=== PATIENT | male | born 1960 | race Caucasian/White ===

== ENCOUNTER 2021-11-22 08:21 | Outpatient (REF) | payer BC, SELFPAY ==
[2021-11-22 09:02] LABS: COVID-19 Test Negative (Negative)
== END 2021-11-22 08:22 | disposition home or self-care (01) ==
LOC: HO.LAB 08:21
PROVIDERS: Visit Provider Internal Medicine
DX: Z20.822 Contact with and (suspected) exposure to COVID-19 (principal)
CPT/HCPCS: 87635; C9803

== ENCOUNTER 2022-04-27 06:16 | Outpatient (REF) | payer BC, SELFPAY ==
[2022-04-27 11:18] LABS: MANUAL DIFF FLAG NO
[2022-04-27 11:25] LABS: Basophils Percent Auto 0.4 % (0-2); Eosinophils Absolute Auto 0.2 X10*3/uL (0.0-0.4); Eosinophils Percent Auto 4.2 % (0-4); Hematocrit 42.2 % (42.0-52.0); Hemoglobin 14.1 g/dl (14.0-18.0); Imm Gran Abs Auto 0.01 X10*3/uL (0.00-0.03); Imm Gran Pct Auto 0.2 % (0.0-0.4); Lymphocytes Absolute Auto 1.3 X10*3/uL (1.2-4.9); Lymphocytes Percent Auto 27.5 % (20-40); Mean Corpuscular HGB Conc 33.4 g/dl (31.0-36.0); Mean Corpuscular Hemoglobin 30.7 pg (27.0-33.0); Mean Corpuscular Volume 91.9 fL (80.0-98.0); Mean Platelet Volume 10.9 fL (9.4-12.4); Monocytes Absolute Auto 0.5 X10*3/uL (0.1-1.2); Monocytes Percent Auto 9.4 % (2-11); Neutrophils Absolute Auto 2.8 x10*3/uL (2.0-8.3); Neutrophils Percent Auto 58.3 % (45-73); Platelet Count 228 X10*3/uL (160-400); Red Blood Count 4.59 X10*6/uL (4.60-5.80); Red Cell Distribution Width 12.7 % (11.0-16.0); White Blood Count 4.8 X10*3/uL (4.8-10.8)
[2022-04-27 12:04] LABS: Alanine Aminotransferase 21 U/L (0-40); Alkaline Phosphatase 57 U/L (39-117); Anion Gap 12 (12-20); Aspartate Amino Transferase 15 U/L (5-37); Bilirubin Total 0.7 mg/dL (0.0-1.0); Blood Urea Nitrogen 19 mg/dL (9-16); Calcium 9.2 mg/dL (8.4-10.2); Carbon Dioxide 24 mmol/L (22-29); Chloride 107 mmol/L (96-108); Cholesterol 177 mg/dL; Estimated Glomerular Filt Rate > 60; Glucose Fasting 91 mg/dL (60-99); HDL Cholesterol 55 mg/dL; LDL Cholesterol Calculated 109 mg/dl; Potassium 4.3 mmol/L (3.3-5.1); Sodium 139 mmol/L (135-145); Total Protein 6.6 g/dL (6.5-8.0); Triglycerides 66 mg/dL
[2022-04-27 12:10] LABS: Prostate Specific Antigen 2.58 ng/mL (<0.05-4.0)
== END 2022-04-27 06:17 | disposition home or self-care (01) ==
LOC: HO.HMGCLDS 06:16
PROVIDERS: Visit Provider Internal Medicine
DX: Z00.00 Encounter for general adult medical examination without abnormal findings (principal); Z12.5 Encounter for screening for malignant neoplasm of prostate
CPT/HCPCS: 36415; 80053; 80061; 84153; 85025

== ENCOUNTER 2022-10-19 06:18 | Day surgery (SDC) | payer BC, SELFPAY ==
--- NOTE | 2022-10-18 14:00 | P.CONAN_ITS ---
Documented by User: Erica Mcmillan NP 10/18/22 14:01 HPI - Anesthesia Eval Consult details Narrative: 62yo M for Colonoscopy FOR[facility], LAT[facility] Past Medical History Medical History (Updated 10/18/22 @ 10:58 by Francoise Thomas RN) HTN (hypertension) Surgical History Surgical History (Updated 10/18/22 @ 11:00 by Francoise Thomas RN) Hx of colonoscopy Hx of hand surgery Social History Social History Patient Tobacco Use Status: Never used Tobacco Use of substances other than those prescribed or required for medical reasons: No Are you DNR?: No Advance Directives: No Advance Directives Information Provided: Yes Meds Allergies Allergy/AdvReac Type Severity Reaction Status Date / Time No Known Allergies Allergy Verified 10/19/22 06:29 Home Medications Medication Instructions Recorded Confirmed Last Taken Type lisinopril 10 mg tablet 1 tab PO DAILY 10/18/22 10/19/22 10/19/22 05:30 History multivitamin 1 tab PO DAILY 10/18/22 10/19/22 Unknown History Exam Exam Date and Time: October 18, 2022 1400 Pertinent Lab Results Pertinent Lab Results: Laboratory Tests 04/27/22 04/27/22 06:33 06:33 WBC 4.8 Hgb 14.1 Hct 42.2 Plt Count 228 Sodium 139 Potassium 4.3 Chloride 107 Carbon Dioxide 24 BUN 19 H Creatinine 0.80 Assessment and Plan Assessment Anesthesia Assessment: Chart Reviewed Documented by User: Maisha Connolly MD 10/19/22 07:21 [facility] LAT[facility] Past Medical History Medical History (Updated 10/18/22 @ 10:58 by Francoise Thomas RN) HTN (hypertension) Family History Family history of problems with anesthesia: No Surgical History Surgical History (Updated 10/18/22 @ 11:00 by Francoise Thomas RN) Hx of colonoscopy Hx of hand surgery History of Problems with Anesthesia: No Social History Social History Patient Tobacco Use Status: Never used Tobacco Use of substances other than those prescribed or required for medical reasons: No Are you DNR?: No Advance Directives: No Advance Directives Information Provided: Yes Meds Allergies Allergy/AdvReac Type Severity Reaction Status Date / Time No Known Allergies Allergy Verified 10/19/22 06:29 Home Medications Medication Instructions Recorded Confirmed Last Taken Type lisinopril 10 mg tablet 1 tab PO DAILY 10/18/22 10/19/22 10/19/22 05:30 History multivitamin 1 tab PO DAILY 10/18/22 10/19/22 Unknown History Exam Airway Mallampati Class: II TM Dist: >3cm Neck ROM: Full Loose/Missing/Broken Teeth: No Heart: rr Lungs: cta Assessment and Plan Final Anesthetic Review Family History of Problems with Anesthesia: No History of Problems with Anesthesia: No NPO: Yes ASA Class: II Final Preanesthetic Review: No Changes in Pt Med Stat Patient Risk: Low Procedure Risk: Low Anesthetic Plan Anesthetic Plan: MAC: Disposition: Standard PACU
[2022-10-19 06:30] VITALS: BMI 23.2
[2022-10-19 06:35] VITALS: BP 159/100; PULSE 71; RESP 16; TEMP 36.2; O2SAT 98
[2022-10-19] MEDS: Lactated Ringers 1,000 ML 100 ML IVCONT (06:49)
[2022-10-19 08:28] VITALS: BP 145/86; PULSE 78; RESP 12; TEMP 36.1; O2SAT 98
--- NOTE | 2022-10-19 08:29 | PM.OP ---
Brief Operative Note Date of Service: 10/19/22 Pre-op diagnosis: Screening Post-op diagnosis: other (Rectal polyp) Procedure: Colonoscopy to the cecum and TI with bx/removal of polyp Surgeon: Alex Prado Anesthesia: MAC Was an Pressing Machine Operator used for this Procedure?: No Estimated blood loss (mL): 2.0 Pathology: other (A. Rectal polyp) Condition: stable Disposition: PACU
[2022-10-19 08:43] VITALS: BP 154/83; PULSE 64; RESP 18; TEMP 36.1; O2SAT 100
--- NOTE | 2022-10-19 09:04 | OP_ITS ---
SURGEON: Alex Prado MD INDICATIONS: The patient presents for evaluation of colorectal cancer screening. Full consent has been obtained from him for this, including risks of bleeding and perforation. PREOPERATIVE DIAGNOSIS: Colorectal cancer screening. POSTOPERATIVE DIAGNOSIS: PROCEDURE PERFORMED: Colonoscopy to the cecum and terminal ileum with biopsy and removal of polyp. ESTIMATED BLOOD LOSS: COMPLICATIONS: ANESTHESIA: monitored anesthesia care. ASSISTANTS: SPECIMENS: POSTOPERATIVE DIAGNOSES: Colorectal cancer screening, small rectal polyp, diverticulosis, and internal hemorrhoids. DESCRIPTION OF PROCEDURE: The patient was placed in the left lateral decubitus position. The digital rectal exam revealed no abnormalities. The Olympus video pediatric colonoscope was entered into the rectum and advanced easily to the cecum. Once in the cecum I did identify normal-appearing cecal pouch with appendiceal orifice and a normal-appearing ileocecal valve. The terminal ileum was cannulated and appeared normal. The scope was withdrawn back in the colon. The entire cecum and ileocecal valve appeared normal. The scope was slowly withdrawn assessing all mucosal surfaces carefully. Preparation was excellent. There was a mild amount of sigmoid diverticulosis. I did not visualize any sign of colitis nor angiodysplasia. In the distal rectum was a flat approximately 4 mm polyp, which was biopsied and completely removed with a cold biopsy forceps. The scope was retroflexed visualizing some internal hemorrhoids. The remainder of the rectum appeared normal. The scope was straightened and withdrawn from the patient. He tolerated the procedure well and was returned to the recovery area in stable condition. IMPRESSION: 1. Small rectal polyp. 2. Diverticulosis. 3. Internal hemorrhoids. PLAN: The results of the pathology will be checked. If this is a tubular adenoma, I would recommend a followup colonoscopy in 5 years. If it is only hyperplastic, I would recommend a followup colonoscopy in 10 years. He would otherwise see me on a p.r.n. basis. MD TOYN Keita/SIMBA / [id number] MTDOsman
== END 2022-10-19 09:21 | disposition home or self-care (01) ==
PROVIDERS: PCP Internal Medicine; Visit Provider Internal Medicine
PROC: 0DJD8ZZ Inspection of Lower Intestinal Tract, Via Natural or Artificial Opening Endoscopic (ICD-10-PCS; CPT 45378; principal; 2022-10-19 07:30)
DX: Z12.11 Encounter for screening for malignant neoplasm of colon (principal); D12.8 Benign neoplasm of rectum; K57.30 Diverticulosis of large intestine without perforation or abscess without bleeding; K64.8 Other hemorrhoids; I10 Essential (primary) hypertension; Z79.899 Other long term (current) drug therapy
CPT/HCPCS: 45380; 88305

== ENCOUNTER 2024-01-08 06:04 | Outpatient (REF) | payer BC, SELFPAY ==
[2024-01-08 11:18] LABS: MANUAL DIFF FLAG NO
[2024-01-08 11:24] LABS: Basophils Percent Auto 0.7 % (0-2); Eosinophils Absolute Auto 0.2 X10*3/uL (0.0-0.4); Hematocrit 42.9 % (42.0-52.0); Hemoglobin 14.6 g/dl (14.0-18.0); Imm Gran Abs Auto 0.02 X10*3/uL (0.00-0.03); Imm Gran Pct Auto 0.5 % (0.0-0.4); Lymphocytes Absolute Auto 1.3 X10*3/uL (1.2-4.9); Lymphocytes Percent Auto 29.9 % (20-40); Mean Corpuscular Hemoglobin 30.3 pg (27.0-33.0); Mean Platelet Volume 10.7 fL (9.4-12.4); Monocytes Absolute Auto 0.4 X10*3/uL (0.1-1.2); Neutrophils Absolute Auto 2.4 x10*3/uL (2.0-8.3); Neutrophils Percent Auto 54.9 % (45-73); Platelet Count 268 X10*3/uL (160-400); Red Blood Count 4.82 X10*6/uL (4.60-5.80); Red Cell Distribution Width 12.2 % (11.0-16.0); White Blood Count 4.4 X10*3/uL (4.8-10.8)
[2024-01-08 11:43] LABS: Alanine Aminotransferase 15 U/L (0-40); Alkaline Phosphatase 52 U/L (39-117); Anion Gap 12 (12-20); Aspartate Amino Transferase 15 U/L (5-37); Bilirubin Total 0.5 mg/dL (0.0-1.0); Blood Urea Nitrogen 15 mg/dL (9-16); C Reactive Protein 1.91 mg/dL (< or = 0.50); Calcium 9.9 mg/dL (8.4-10.2); Carbon Dioxide 25 mmol/L (22-29); Chloride 105 mmol/L (96-108); Cholesterol 134 mg/dL (<200); Estimated Glomerular Filt Rate > 60; Glucose Fasting 96 mg/dL (60-99); HDL Cholesterol 55 mg/dL (>40); LDL Cholesterol Calculated 67 mg/dL (<100); Potassium 3.9 mmol/L (3.3-5.1); Sodium 138 mmol/L (135-145); Triglycerides 61 mg/dL (<150)
[2024-01-08 11:56] LABS: Prostate Specific Antigen 3.44 ng/mL (<0.05-4.0)
== END 2024-01-08 06:05 | disposition home or self-care (01) ==
LOC: HO.HMGCLDS 06:04
PROVIDERS: PCP Internal Medicine; Visit Provider Internal Medicine
DX: Z12.5 Encounter for screening for malignant neoplasm of prostate (principal); I10 Essential (primary) hypertension; N40.0 Benign prostatic hyperplasia without lower urinary tract symptoms
CPT/HCPCS: 36415; 80053; 80061; 84153; 85025; 86140

== ENCOUNTER 2024-02-17 14:06 | Outpatient (REF) | payer BC, SELFPAY ==
[2024-02-17 14:52] LABS: Influenza A PCR NEGATIVE (Negative); Influenza B PCR NEGATIVE (Negative); Resp Syncy Virus RNA Qual PCR NEGATIVE (Negative); SARS COV2 PCR INHOUSE NEGATIVE (Negative)
== END 2024-02-17 14:07 | disposition home or self-care (01) ==
LOC: HO.LNP 14:06
PROVIDERS: Visit Provider Internal Medicine
DX: R05.9 Cough, unspecified (principal); R51.9 Headache, unspecified
CPT/HCPCS: 0241U

== ENCOUNTER 2025-05-31 15:07 | Outpatient (AMB) | payer MEDICARE, SELFPAY ==
[2025-05-31 15:36] VITALS: BP 138/84; PULSE 88; TEMP 36.2; O2SAT 97; BMI 25.2
--- NOTE | 2025-05-31 15:36 | MHC.PC.OV ---
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: No Accompanied by: Self / Same As Patient Allergies No Known Allergies Allergy (Verified 05/31/25 15:40) Tobacco use date assessed: 05/31/25 Fall risk assessment: No Falls in past year Last assessed Fall Risk: 05/31/25 Dental Screening Dental Screen Date: 05/31/25 Did you have a dental visit in the last 12 months?: No Did you have a dental problem in the last 6 months where you did not have access to dental care?: No PFSH Medical History HTN (hypertension) Surgical History Hx of hand surgery Hx of colonoscopy (~10/19/22) Family History (Updated 05/31/25 @ 15:43 by Zari Whitaker MA) Mother No problems noted. Father No problems noted. Social History Housing: House Patient Tobacco Use Status: Never used Tobacco e-Cigarette/Vaping Use: Never Used service: No Current occupational status: employed Cognitive needs: No Hearing needs: No Vision needs: Yes (rx glasses) Questionnaire PHQ-9 Over the last 2 weeks, how often have you been bothered by any of the following problems? 1. Little interest or pleasure in doing things: not at all 2. Feeling down, depressed, or hopeless: not at all 3. Trouble falling or staying asleep, or sleeping too much: not at all 4. Feeling tired or having little energy: not at all 5. Poor appetite or overeating: not at all 6. Feeling bad about yourself - or that you are a failure or have let yourself or your family down: not at all 7. Trouble concentrating on things, such as reading the newspaper or watching television: not at all 8. Moving or speaking so slowly that other people could have noticed. Or the opposite - being so fidgety or restless that you have been moving around a lot more than usual: not at all 9. Thoughts that you would be better off or of hurting yourself in some way: not at all Total score: 0 Source: Developed by Drs. Alex Jack, Addis Perez, Fredis Costa and colleagues, with an educational monse from [employer]. Thrive Questionnaire Date Thrive assessed: 05/31/25 I am a: Patient Within the past 12 months, did the food you bought not last and you didn't have the money to get more?: Never true Within the past 12 months, did you worry whether your food would run out before you got money to buy more?: Never true Do you have trouble paying for medicines?: No Do you have trouble getting transportation to medical appointments?: No Do you have trouble paying your heating and electricity bill?: No Do you have trouble taking care of your child, family member or friend?: No Do you have trouble with day-to-day activities such as bathing, preparing meals, shopping, managing finances, etc.?: No Are you currently unemployed and looking for a job?: No Are you interested in more education?: No THRIVE Score: 0 AUDIT C Alcohol Use Questionnaire (AUDIT-C) 1. How often do you have a drink containing alcohol?: Monthly or less 2. How many drinks containing alcohol do you have on a typical day when you are drinking?: 1 or 2 3. How often do you have six or more drinks on one occasion?: Less than monthly Total Score: 2 DIANNA-7 AMB Questionnaire DIANNA-7 Date DIANNA - 7 assessed: 05/31/25 Feeling nervous, anxious, or on edge: 0 = Not at all Not being able to stop or control worryin = Not at all Worrying too much about different things: 0 = Not at all Trouble relaxin = Not at all Being so restless that it is hard to sit still: 0 = Not at all Becoming easily annoyed or irritable: 0 = Not at all Feeling afraid as if something awful might happen: 0 = Not at all Total DIANNA-7 score (0-4 normal; 5-9 mild; 10-14 moderate; 15-21 severe): 0 Source: Developed by Drs. Alex Jack, Addis Perez, Fredis Costa and colleagues, with an educational monse from [employer]. Physical exam (Primary Care) Vital Signs: Last Vital Signs Temp 97.1 F 05/31/25 15:36 Pulse 88 05/31/25 15:36 BP 138/84 05/31/25 15:36 Pulse Ox 97 05/31/25 15:36 Oxygen Delivery Method Room Air 05/31/25 15:36 BMI result Body Mass Index 25.2 Tobacco/Smoking Status: Tobacco use Status Tobacco use date assessed 05/31/25 05/31/25 15:44 Patient Tobacco Use Status Never used Tobacco 05/31/25 15:44 e-Cigarette/Vaping Use Never Used 05/31/25 15:44 PHQ-9: PHQ-9 Score PHQ-9: Total score 0 05/31/25 15:44 Thrive Assessment: Date of Thrive Assessment Date Thrive assessed 05/31/25 05/31/25 15:44 Coding Level of Care Code New Pt Prev Care >65yr (76684) Diagnoses Annual physical exam Z00.00 Assessment & Plan Assessment & Plan (1) Annual physical exam: Code(s): Z00.00 - Encounter for general adult medical examination without abnormal findings Plan: History of Present Illness - The patient is a 64-year-old male presenting for a physical examination with a primary concern of tinnitus. - Tinnitus has been present for over a year, described as a significant ringing that sometimes leads to headaches on the left side of the neck. - The ringing is more noticeable in quiet environments and does not interfere with sleep. - The patient has tried allergy medications without relief and has consulted an ENT, Dr. Dominguez, who noted borderline hearing loss and suggested hearing aids might help. - The patient reports nasal congestion upon waking, which resolves after clearing the nose, with occasional sneezing but no itchy eyes. 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 Review of Systems - Neurological: Reports significant tinnitus, sometimes leading to headaches on the left side of the neck. Denies interference with sleep. - Respiratory: Reports nasal congestion upon waking, resolves after clearing the nose. Occasional sneezing, denies itchy eyes. - Auditory: Reports hearing loss, more noticeable in quiet environments. Denies issues with phone conversations. Physical Exam General: Cooperative and healthy appearing Nutritional Appearance: Well nourished Orientation/consciousness: Patient oriented x3 Limitations: No limitations Head: Normal to inspection General: Appearance normal, both eyes and all related structures Neck: Normal visual inspection Chest: Normal palpation of entire chest wall Respiratory: N ormal respiratory effort Neurology: Patient oriented x3, reports significant tinnitus and occasional headaches on the left side of the neck. Results Plan 1. Tinnitus - Referral to ENT in [place] for further evaluation to rule out any underlying causes. - Discussion of masking noises such as rain or ocean sounds to alleviate symptoms, especially in quiet environments. 2. Hearing Loss - Previous evaluation by ENT suggested borderline need for hearing aids. - Consideration of hearing aids to potentially improve hearing and alleviate tinnitus. 3. Preventative Care: Fasting Blood Work - Fasting blood work recommended to update health status. Discussion Notes I discussed with the patient the likelihood of tinnitus being a chronic condition with no definitive cure, emphasizing the importance of ruling out any underlying causes through an ENT evaluation. We talked about the potential benefits of masking noises to manage symptoms. I also recommended fasting blood work to assess overall health status and suggested considering hearing aids as a possible intervention for hearing loss. Patient Instructions - Schedule an appointment with the ENT in [place] for further evaluation. - Consider using masking noises like rain or ocean sounds to help with tinnitus, especially in quiet settings. - Complete fasting blood work as recommended. Medications: Discontinued lisinopril take 1 tab and half by mouth a day Discontinued Reason: Patient no longer taking 10 mg PO DAILY 135 tabs 3RF
== END 2025-05-31 16:13 | disposition home or self-care (01) ==
PROVIDERS: PCP Internal Medicine; Visit Provider Internal Medicine
DX: Z00.00 Encounter for general adult medical examination without abnormal findings (principal)

== ENCOUNTER → 2025-05-31 15:07 | Outpatient (BNVA) | payer MEDICARE, SELFPAY | PROVIDERS: PCP Internal Medicine; Visit Provider Internal Medicine | DX: Z00.00 Encounter for general adult medical examination without abnormal findings (principal); H93.19 Tinnitus, unspecified ear; H91.90 Unspecified hearing loss, unspecified ear | CPT/HCPCS: 96127; 99387 ==

== ENCOUNTER 2025-06-08 06:59 | Outpatient (REF) | payer MEDICARE, SELFPAY ==
[2025-06-08 10:19] LABS: Hematocrit 39.7 % (42.0-52.0); Hemoglobin 13.5 g/dl (14.0-18.0); Mean Corpuscular HGB Conc 34.0 g/dl (31.0-36.0); Mean Corpuscular Hemoglobin 30.7 pg (27.0-33.0); Mean Corpuscular Volume 90.2 fL (80.0-98.0); NRBC Abs Auto 0.000 X10*3/uL (0.0-0.012); NRBC Pct Auto 0.0 /100WBC (0.0-0.2); Platelet Count 199 X10*3/uL (160-400); Red Blood Count 4.40 X10*6/uL (4.60-5.80); White Blood Count 3.8 X10*3/uL (4.8-10.8)
[2025-06-08 10:32] LABS: Appearance Urine Clear; Glucose Urine UA Negative (Negative); PH 6.5 (5.0-9.0); Specific Gravity - Urine 1.015 (1.005-1.025)
[2025-06-08 10:51] LABS: Alanine Aminotransferase 25 U/L (0-40); Albumin Level 4.2 g/dL (3.5-5.0); Alkaline Phosphatase 51 U/L (39-117); Anion Gap 12 (12-20); Aspartate Amino Transferase 32 U/L (5-37); Blood Urea Nitrogen 13 mg/dL (9-16); Calcium 8.7 mg/dL (8.4-10.2); Carbon Dioxide 26 mmol/L (22-29); Chloride 106 mmol/L (96-108); Cholesterol 122 mg/dL (<200); Estimated Glomerular Filt Rate > 60; HDL Cholesterol 54 mg/dL (>40); Potassium 3.9 mmol/L (3.3-5.1); Sodium 140 mmol/L (135-145); Total Protein 6.8 g/dL (6.5-8.0); Triglycerides 56 mg/dL (<150)
[2025-06-08 11:18] LABS: Thyroid Stimulating Hormone 1.71 uIU/mL (0.32-4.0)
== END 2025-06-08 07:00 | disposition home or self-care (01) ==
LOC: HO.HMGCLDS 06:59
PROVIDERS: PCP Internal Medicine; Visit Provider Internal Medicine
DX: H93.19 Tinnitus, unspecified ear (principal)
CPT/HCPCS: 36415; 80048; 80061; 80076; 81003; 84443; 85027

== ENCOUNTER 2025-08-16 16:05 | Outpatient (AMB) | payer MEDICARE, SELFPAY ==
--- NOTE | 2025-08-16 16:12 | MHC.PC.OV ---
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 Prefers [place] Hypertension-has been taking losartan 75 mg daily. Not checking blood pressures at home. He does report increased stress as he is currently selling his home, retiring within the next week. Initial blood pressure 150/90, recheck 160/94 Concerns: None Health maintenance: Last colonoscopy 2021 with 5 year follow-up advised. Dr. Prado ROS: General: No fevers, malaise, unintentional weight loss HEENT: No blurred vision, diplopia. No sore throat, nasal congestion, rhinorrhea, sinus pain, ear pain Cardiovascular: No chest pain, palpitations, or leg edema Respiratory: No shortness of breath, wheezing, cough GI: No abdominal pain, nausea, vomiting, diarrhea, constipation, melena, hematochezia : No dysuria, hematuria, increased urinary frequency, decreased urinary output MSK: No myalgia, back pain Neuro: No headaches, weakness, paresthesias Skin: No rashes or lesions EXAM: Constitutional - Awake and Alert, No apparent distress Eyes - PERRL Cardiovascular - S1S2, RRR, No edema Respiratory - Normal lung expansion, Normal respiratory effort, No respiratory distress, CTA bilaterally Extremities - no calf tenderness bilaterally, no swelling Skin - Warm/Dry Neurological - Alert & oriented x3 Psychological - Appropriate [facility] Medical History (Updated 08/16/25 @ 16:47 by JERALD Wasserman) Tinnitus HTN (hypertension) Surgical History Hx of hand surgery Hx of colonoscopy (~10/19/22) Family History (Updated 05/31/25 @ 15:43 by Zari Whitaker MA) Mother No problems noted. Father No problems noted. Social History Housing: House Patient Tobacco Use Status: Never used Tobacco e-Cigarette/Vaping Use: Never Used service: No Current occupational status: employed Cognitive needs: No Hearing needs: No Vision needs: Yes (rx glasses) Questionnaire Thrive Questionnaire Date Thrive assessed: 05/31/25 DIANNA-7 AMB Questionnaire DIANNA-7 Date DIANNA - 7 assessed: 05/31/25 Source: Developed by Drs. Alex Jack, Addis Perez, Fredis Costa and colleagues, with an educational monse from [employer]. Physical exam (Primary Care) Vital Signs: Last Vital Signs Temp 97.5 F 08/16/25 16:13 Pulse 93 08/16/25 16:13 Resp 16 08/16/25 16:13 BP 150/90 H 08/16/25 16:13 Pulse Ox 96 08/16/25 16:13 Oxygen Delivery Method Room Air 08/16/25 16:13 BMI result Body Mass Index 25.7 Tobacco/Smoking Status: Tobacco use Status Tobacco use date assessed 05/31/25 08/16/25 16:18 Patient Tobacco Use Status Never used Tobacco 08/16/25 16:18 e-Cigarette/Vaping Use Never Used 08/16/25 16:18 Thrive Assessment: Date of Thrive Assessment Date Thrive assessed 05/31/25 08/16/25 16:18 Coding Level of Care Code Est Pt Level 4 (08836) Diagnoses HTN (hypertension) I10 Assessment & Plan Assessment & Plan (1) HTN (hypertension): Code(s): I10 - Essential (primary) hypertension Category: Medical Plan: Uncontrolled on recheck. Increase losartan to 100 mg daily. Follow-up with RN for blood pressure check and then 6 months in the office Plan As above Medications: New losartan 100 mg PO DAILY 90 tabs 1RF Discontinued losartan Discontinued Reason: Doctor's Order take 1 tab and half by mouth a day orally daily; 90 days 135 tabs 1RF
[2025-08-16 16:13] VITALS: BP 150/90; PULSE 93; RESP 16; TEMP 36.4; O2SAT 96; BMI 25.7
[2025-08-16 16:47] VITALS: BP 160/9
== END 2025-08-16 17:03 | disposition home or self-care (01) ==
PROVIDERS: PCP Internal Medicine; Visit Provider Physician Assistant
DX: I10 Essential (primary) hypertension (principal)

== ENCOUNTER → 2025-08-16 16:05 | Outpatient (BNVA) | payer SELFPAY | PROVIDERS: PCP Internal Medicine; Visit Provider Physician Assistant | DX: I10 Essential (primary) hypertension (principal); Z79.899 Other long term (current) drug therapy | CPT/HCPCS: 99212 ==

== ENCOUNTER 2025-09-07 09:01 | Outpatient (AMB) | payer MEDICARE, SELFPAY ==
--- NOTE | 2025-09-07 08:58 | A.OFFPC_ITS ---
Vital Signs 09/07/25 09:06 Height 5 ft 7 in Weight 74.389 kg BMI 25.7 BP 140/84 H Blood Pressure Location Lt brachial Position Sitting Respiration 18 Pulse 67 Pulse Source Pulse Oximeter Temp 97.8 F Temp Source Temporal Artery Scan Pulse Oximetry (%) 97 Oxygen Delivery Method Room Air Intake Visit Reasons: BP check, medication change Environmental Planner Required: No Accompanied by: Self / Same As Patient Allergies No Known Allergies Allergy (Verified 09/07/25 08:58) Tobacco use date assessed: 05/31/25 Dental Screening Dental Screen Date: 05/31/25 HPI HPI Comments History of Present Illness Details 64-year-old male with history of tinnitu s and hypertension presenting to the office today for transitional care and management of chronic conditions. [place] Hypertension- Patient had presented for an RN blood pressure check in SBP was in the 180s. He did purchase a blood pressure cuff and at home blood pressures were within the same range. Amlodipine 10 mg daily was added to his losartan 100 mg. Not checking blood pressures at home. He does report increased stress as he is currently selling his home, retiring within the next week. Since starting the medication, SBP has been in the 120s-130s. Initial blood pressure in the office 140/84 and on recheck 140/84. Has been compliant with medications. Tinnitus-upcoming appointment with [facility]. Concerns: None Health maintenance: Last colonoscopy 2021 with 5 year follow-up advised. Dr. Prado ROS: General: No fevers, malaise, unintentional weight loss HEENT: No blurred vision, diplopia. No sore throat, nasal congestion, rhinorrhea, sinus pain, ear pain Cardiovascular: No chest pain, palpitations, or leg edema Respiratory: No shortness of breath, wheezing, cough GI: No abdominal pain, nausea, vomiting, diarrhea, constipation, melena, hematoc hezia : No dysuria, hematuria, increased urinary frequency, decreased urinary output MSK: No myalgia, back pain Neuro: No headaches, weakness, paresthesias Skin: No rashes or lesions EXAM: Constitutional - Awake and Alert, No apparent distress Eyes - PERRL Cardiovascular - S1S2, RRR, No edema Respiratory - Normal lung expansion, Normal respiratory effort, No respiratory distress, CTA bilaterally Extremities - no calf tenderness bilaterally, no swelling Skin - Warm/Dry Neurological - Alert & oriented x3 Psychological - Appropriate affect PFSH Medical History (Updated 08/16/25 @ 16:47 by JERALD Wasserman) Tinnitus HTN (hypertension) Surgical History Hx of hand surgery Hx of colonoscopy (~10/19/22) Family History (Updated 05/31/25 @ 15:43 by Zari Whitaker MA) Mother No problems noted. Father No problems noted. Social History Housing: House Patient Tobacco Use Status: Never used Tobacco e-Cigarette/Vaping Use: Never Used service: No Current occupational status: employed Cognitive needs: No Hearing needs: No Vision needs: Yes (rx glasses) Questionnaire Thrive Questionnaire Date Thrive assessed: 05/31/25 DIANNA-7 AMB Questionnaire DIANNA-7 Date DIANNA - 7 assessed: 05/31/25 Source: Developed by Drs. Alex Jack, Addis Perez, Fredis Costa and colleagues, with an educational monse from [employer] Physical exam (Primary Care) Vital Signs: Last Vital Signs Temp 97.8 F 09/07/25 09:06 Pulse 67 09/07/25 09:06 Resp 18 09/07/25 09:06 BP 140/84 H 09/07/25 09:06 Pulse Ox 97 09/07/25 09:06 Oxygen Delivery Method Room Air 09/07/25 09:06 BMI result Body Mass Index 25.7 Tobacco/Smoking Status: Tobacco use Status Tobacco use date assessed 05/31/25 09/07/25 08:59 Patient Tobacco Use Status Never used Tobacco 09/07/25 08:59 e-Cigarette/Vaping Use Never Used 09/07/25 08:59 Thrive Assessment: Date of Thrive Assessment Date Thrive assessed 05/31/25 09/07/25 08:59 Coding Level of Care Code Est Pt Level 3 (60218) Complex EM visit Add On G2211 Diagnoses HTN (hypertension) I10 Tinnitus H93.19 Assessment & Plan Assessment & Plan (1) HTN (hypertension): Code(s): I10 - Essential (primary) hypertension Category: Medical Plan: Remain borderline but greatly improved control. Would recommend continuing current therapies of amlodipine 10 mg daily and losartan 100 mg daily. He is advised to continue checking his blood pressures at home and reach out to the office in 2-3 weeks with blood pressure readings. Low-sodium diet (2) Tinnitus: Code(s): H93.19 - Tinnitus, unspecified ear Category: Medical Plan: Follow-up with ENT as scheduled Plan Follow-up in the office in 6 months, labs to be completed prior to visit Orders: Orders Basic Metabolic Panel 6 Months H93.19 - Tinnitus, unspecified ear, I10 - Essential (primary) hypertension Prostate Specific Antigen 6 Months H93.19 - Tinnitus, unspecified ear, I10 - Essential (primary) hypertension Lipid Panel 6 Months H93.19 - Tinnitus, unspecified ear, I10 - Essential (primary) hypertension Liver Panel 6 Months H93.19 - Tinnitus, unspecified ear, I10 - Essential (primary) hypertension
[2025-09-07 09:06] VITALS: BP 140/84; PULSE 67; RESP 18; TEMP 36.6; O2SAT 97; BMI 25.7
== END 2025-09-07 09:31 | disposition home or self-care (01) ==
PROVIDERS: PCP Internal Medicine; Visit Provider Physician Assistant
DX: I10 Essential (primary) hypertension (principal); H93.19 Tinnitus, unspecified ear

== ENCOUNTER → 2025-09-07 09:01 | Outpatient (BNVA) | payer SELFPAY | PROVIDERS: PCP Internal Medicine; Visit Provider Physician Assistant | DX: I10 Essential (primary) hypertension (principal); H93.19 Tinnitus, unspecified ear; Z79.899 Other long term (current) drug therapy | CPT/HCPCS: 99212 ==